=== PATIENT | female | born 1965 | race Caucasian/White ===

== ENCOUNTER → 2017-01-01 | Outpatient (CLI) | payer OTHER ==
[~2017-01-01] MED LIST: LOSA100T6 PO; METO-95 PO
== END | disposition home or self-care (01) ==
LOC: CVU 06:38
PROVIDERS: ATTEND Family Medicine
DX: M79.661 Pain in right lower leg (principal); M79.662 Pain in left lower leg; N18.3 Chronic kidney disease, stage 3 (moderate); N17.8 Other acute kidney failure
CPT/HCPCS: 93922

== ENCOUNTER → 2017-01-13 | Outpatient (CLI) | payer OTHER | END | disposition home or self-care (01) | LOC: CFH 16:08 | PROVIDERS: ATTEND Internal Medicine Nephrology | DX: N18.3 Chronic kidney disease, stage 3 (moderate) (principal); N17.8 Other acute kidney failure; K76.0 Fatty (change of) liver, not elsewhere classified | CPT/HCPCS: 76770 ==

== ENCOUNTER 2017-08-31 16:26 | Emergency (ER) | payer OTHER ==
[~2017-08-31] VITALS: Ht 157.5 cm; Wt 84.3 kg
[~2017-08-31 16:26] MED LIST changes: +ANXIETY MED; +COLD MEDICINE; +INSU100I28 SQ; +LEVO50TA5 PO
[2017-08-31 17:27] LABS: BASOPHILS # (AUTO) 0.04 x10^3/uL (0-0.1); BASOPHILS % (AUTO) 1 % (0-1); EOSINOPHILS # (AUTO) 0.23 x10^3/uL (0-0.4); EOSINOPHILS % (AUTO) 3 % (1-7); LYMPHOCYTES # (AUTO) 2.81 x10^3/uL (1-3.4); LYMPHOCYTES % (AUTO) 34 % (22-44); MD NO; MEAN CORPUSCULAR HEMOGLOBIN 26.7 pg (27.0-34.8); MEAN CORPUSCULAR HGB CONC 31.9 g/dL (32.4-35.8); MEAN CORPUSCULAR VOLUME 83.7 fL (80-100); MEAN PLATELET VOLUME 6.9 fL (7.4-10.4); MONOCYTES # (AUTO) 0.58 x10^3/uL (0.2-0.8); MONOCYTES % (AUTO) 7 % (2-9); NEUTROPHILS # (AUTO) 4.74 x10^3/uL (1.8-6.8); NEUTROPHILS % (AUTO) 56 % (42-75); PLATELET COUNT 298 x10^3/uL (130-400); RED BLOOD COUNT 4.95 x10^6/uL (3.82-5.3); RED CELL DISTRIBUTION WIDTH 14.8 % (9.6-15.2)
[2017-08-31 17:37] LABS: ALANINE AMINOTRANSFERASE 32 U/L (12-78); ALBUMIN 3.3 g/dL (3.4-5.0); ANION GAP 10 mmol/L (5-15); CALCIUM 8.9 mg/dL (8.5-10.1); CHLORIDE 106 mmol/L (98-107); CREATININE 1.75 mg/dL (0.55-1.02)
[2017-08-31 17:39] LABS: ALKALINE PHOSPHATASE 106 U/L (45-117); BILIRUBIN,TOTAL 0.2 mg/dL (0.2-1.0); TOTAL PROTEIN 7.9 g/dL (6.4-8.2)
[2017-08-31] MEDS ORDERED: ALBU8.5H8 INH (18:25)
[2017-08-31] MEDS ORDERED: HYDR-3240 PO (18:25)
[2017-08-31] MEDS ORDERED: FLUO90CA5 PO (18:26)
[2017-08-31 19:07] LABS: CULTURE INDICATED? YES; MICROSCOPIC INDICATED
[2017-08-31] MEDS ORDERED: ONDANSETRON 2MG/ML, 2ML IVPush ONE (19:30)
[2017-08-31] MEDS ORDERED: SODIUM CHLORIDE FLUSH 10ML SYR IVF ONE (19:30)
[2017-08-31] MEDS ORDERED: MORPHINE SULFATE 4 MG/ML, 1ML IVPush PRN (19:30)
[2017-08-31] MEDS ORDERED: MORPHINE SULFATE 4 MG/ML, 1ML ONE (19:33)
[2017-08-31] MEDS ORDERED: ONDANSETRON 2MG/ML, 2ML ONE (19:33)
[2017-08-31 19:38] LABS: TROPONIN I < 0.015 ng/mL (0.000-0.045)
[2017-08-31 20:53] VITALS: BP 128/80
== END 2017-08-31 22:47 | disposition home or self-care (01) ==
LOC: ED 20:50
DX: N30.90 Cystitis, unspecified without hematuria (principal); M54.5 Low back pain; N18.9 Chronic kidney disease, unspecified; E03.9 Hypothyroidism, unspecified
CPT/HCPCS: 36415; 74176; 80053; 81001; 84484; 84703; 85025; 87086; 93005; 96374; 96375; 99285; J2405

== ENCOUNTER 2019-07-17 10:15 | Emergency (ER) | payer OTHER ==
[~2019-07-17] VITALS: Ht 157.5 cm; Wt 85.8 kg
[~2019-07-17 10:15] MED LIST changes: +ALBU8.5H8 INH; +FLUO90CA5 PO; +HYDR-3240 PO; +LOSA100T14 PO; -LOSA100T6 PO
--- NOTE | 2019-07-17 10:33 | NUR ---
ekg in triage
[2019-07-17] MEDS ORDERED: ONDANSETRON 2MG/ML, 2ML IVPush ONE (11:00)
[2019-07-17] MEDS ORDERED: SODIUM CHLORIDE FLUSH 10ML SYR IVF ONE (11:00)
[2019-07-17] MEDS ORDERED: HYDROmorphone 2 MG/ML, 1ML IVPush PRN (11:00)
[2019-07-17 11:24] LABS: BASOPHILS # (AUTO) 0.06 x10^3/uL (0-0.1); BASOPHILS % (AUTO) 1 % (0-1); EOSINOPHILS # (AUTO) 0.24 x10^3/uL (0-0.4); EOSINOPHILS % (AUTO) 3 % (1-7); LYMPHOCYTES # (AUTO) 1.86 x10^3/uL (1-3.4); LYMPHOCYTES % (AUTO) 25 % (22-44); MD NO; MEAN CORPUSCULAR HEMOGLOBIN 27.9 pg (27.0-34.8); MEAN CORPUSCULAR HGB CONC 32.5 g/dL (32.4-35.8); MEAN CORPUSCULAR VOLUME 85.7 fL (80-100); MEAN PLATELET VOLUME 7.1 fL (7.4-10.4); MONOCYTES # (AUTO) 0.66 x10^3/uL (0.2-0.8); MONOCYTES % (AUTO) 9 % (2-9); NEUTROPHILS # (AUTO) 4.73 x10^3/uL (1.8-6.8); NEUTROPHILS % (AUTO) 63 % (42-75); PLATELET COUNT 297 x10^3/uL (130-400); RED BLOOD COUNT 4.95 x10^6/uL (3.82-5.3); RED CELL DISTRIBUTION WIDTH 15.2 % (9.6-15.2)
[2019-07-17 11:32] LABS: ALANINE AMINOTRANSFERASE 25 U/L (12-78); ALBUMIN 2.9 g/dL (3.4-5.0); ANION GAP 6 mmol/L (5-15); CALCIUM 8.4 mg/dL (8.5-10.1); CHLORIDE 106 mmol/L (98-107); CREATININE 1.87 mg/dL (0.55-1.02)
[2019-07-17 11:35] LABS: ALKALINE PHOSPHATASE 94 U/L (45-117); BILIRUBIN,TOTAL 0.3 mg/dL (0.2-1.0)
[2019-07-17] MEDS ORDERED: HYDROmorphone 1 MG/ML, 1ML INJ ONE (11:45)
[2019-07-17] MEDS ORDERED: ONDANSETRON 2MG/ML, 2ML ONE (11:45)
--- NOTE | 2019-07-17 11:54 | NUR ---
AFTER LABS DRAWN PT AMBULATED TO BATHROOM TO PROVIDE URINE SAMPLE. IV ESTABLISHED AND MEDICATED FOR RIGHT SIDE PAIN WITH NAUSEA. AWAITING CT
[2019-07-17 11:58] LABS: MICROSCOPIC INDICATED
--- NOTE | 2019-07-17 12:41 | NUR ---
BREAK RN: PT RETURN FROM CT. AWARE OF WAITING FOR RESULTS. NO NEEDS EXPRESSED AT THIS TIME.
--- NOTE | 2019-07-17 13:15 | NUR ---
REPORT TO NATHAN LAUGHLIN
[2019-07-17] MEDS ORDERED: CEFTRIAXONE PMX 1GM/50ML 50 ML IV ONE (13:30)
[2019-07-17] MEDS ORDERED: CEFTRIAXONE PMX 1GM/50ML 50 ML ONE (14:29)
[2019-07-17 15:03] VITALS: BP 114/65
== END 2019-07-17 15:05 | disposition home or self-care (01) ==
LOC: ED 12:11
DX: N30.00 Acute cystitis without hematuria (principal); R10.31 Right lower quadrant pain; N26.1 Atrophy of kidney (terminal); E11.22 Type 2 diabetes mellitus with diabetic chronic kidney disease; N18.9 Chronic kidney disease, unspecified; E03.9 Hypothyroidism, unspecified
CPT/HCPCS: 36415; 74176; 80053; 81001; 83690; 85025; 87086; 87147; 93005; 96365; 96375; 99285; J0696; J1170; J2405